=== PATIENT | female | born 2000 | race African-American/Black ===

== ENCOUNTER 2022-03-28 06:21 | Emergency (ER) | payer OTHER, SELFPAY ==
[2022-03-28] VITALS (8 sets, daily range): BP systolic 109–126; BP diastolic 71–82; PULSE 50–69; RESP 16–18; TEMP 36.5; O2SAT 98–100
--- NOTE | 2022-03-28 07:06 | PC.NURSE ---
Report given to IZABELA Puente
--- NOTE | 2022-03-28 07:20 | ED.GENADULT ---
HPI - General Adult General Chief complaint: Headache Stated complaint: Headache, spotting? Time Seen by Provider: 03/28/22 07:05 History of Present Illness HPI narrative: Pt is a 22 y/o AAF who p/w c/o CORTEZ and vaginal spotting. Began yesterday. Possible discharge. Last menses las week. Has reasonable concern for STI. No AP outside of cramps with spotting. No f/c/n/v/cp/soa. No change in vision. No h/o migraine. CORTEZ throbbing and posterior. Related Data Home Medications Medication Instructions Recorded Confirmed aspirin 81 mg tablet,delayed 81 mg PO DAILY 05/24/20 05/24/20 release (Deanne Low Dose Aspirin) folic acid 1 mg tablet 2 mg PO DAILY 05/24/20 05/24/20 prenat.vits,parviz,dzk-josa-euiky 1 tablet PO DAILY 05/24/20 05/24/20 progesterone micronized 200 mg 200 mg PO BID 05/24/20 05/24/20 capsule Allergies Allergy/AdvReac Type Severity Reaction Status Date / Time No Known Allergies Allergy Verified 03/28/22 06:30 Review of Systems Review of Systems: All systems reviewed & are unremarkable except as noted in HPI and below Constitutional: Constitutional: Denies chills, Denies fatigue and Denies fever(s) Eyes: Eyes: Denies change in vision Gastrointestinal: Gastrointestinal: Denies abdominal pain, Denies nausea and Denies vomiting Genitourinary: Genitourinary: Reports abnormal vaginal bleeding, Denies nocturia, Denies dysuria and Reports vaginal discharge PMFSH Past Medical History Medical History (Updated 03/28/22 @ 09:15 by Antonio Posadas MD) Healthy female adult Surgical History Surgical History (Updated 03/28/22 @ 07:22 by Antonio Posadas MD) No pertinent past surgical history Family History Family History (Updated 05/24/20 @ 13:36 by Trey Mckeon RN) Father Type 2 diabetes mellitus Grandparent Type 2 diabetes mellitus Social History Social History Substance use: never Spiritual care concerns: No Exam Narrative: GENERAL: Well-appearing, well-nourished, and in no acute distress. HEAD: Normocephalic, atraumatic. EYES: PERRL and EOMI. CHEST: Clear to auscultation. No respiratory distress. HEART: Regular rate and rhythm. Normal peripheral pulses. ABDOMEN: Soft, nontender, nondistended. : Normal cervix, no bleeding, mild to moderate amount of yellow discharge. Not malodorous. Normal external genitalia. EXTREMITIES: Normal range of motion. No edema. NEURO: Alert and oriented x3. PSYCH: Normal mood and affect. Course Course Emergency Course: Discharge home. We will treat for possible STI after discussion with patient. Vital Signs Vital signs: Vital Signs Temperature 97.7 F 03/28/22 06:30 Pulse Rate 65 03/28/22 06:30 Respiratory Rate 16 03/28/22 06:30 Blood Pressure 109/81 03/28/22 06:30 Pulse Oximetry 100 03/28/22 06:30 Oxygen Delivery Room Air 03/28/22 06:30 Temperature 97.7 F 03/28/22 06:30 Pulse Rate 54 L 03/28/22 08:56 Respiratory Rate 18 03/28/22 08:56 Blood Pressure 113/82 03/28/22 08:56 Pulse Oximetry 98 03/28/22 08:56 Oxygen Delivery Room Air 03/28/22 06:30 Medical Decision Making Vital Signs Vital Signs: Vital Signs Temperature 97.7 F 03/28/22 06:30 Pulse Rate 65 03/28/22 06:30 Respiratory Rate 16 03/28/22 06:30 Blood Pressure 109/81 03/28/22 06:30 Pulse Oximetry 100 03/28/22 06:30 Oxygen Delivery Room Air 03/28/22 06:30 Temperature 97.7 F 03/28/22 06:30 Pulse Rate 54 L 03/28/22 08:56 Respiratory Rate 18 03/28/22 08:56 Blood Pressure 113/82 03/28/22 08:56 Pulse Oximetry 98 03/28/22 08:56 Oxygen Delivery Room Air 03/28/22 06:30 Lab Data Labs: Lab Results 03/28/22 03/28/22 03/28/22 Range/Units 07:21 07:58 07:58 Urine Color Yellow (Yellow) Urine Appearance Clear (Clear) Urine pH 6.5 (5.0-9.0) Ur Specific [place] >= 1.030 (1.001-1.035) Urine Protein Negative (Negative) mg/dL Urine Glucose (UA) Negative
[2022-03-28] MEDS: KETOROLAC 30 MG/ML VIAL (*BKC) IV PUSH (07:23)
[2022-03-28 07:28] LABS: Appearance Urine Clear (Clear); Bilirubin Urine Negative (Negative); Blood Urine 2+ (Negative); Color Urine Yellow (Yellow); Glucose Urine UA Negative (Negative); Ketones Urine Negative (Negative); Leukocyte Esterase Ur Trace LEU/UL (Negative); Nitrate Urine Negative (Negative); Protein Urine Negative (Negative); Specific Grav Ur >= 1.030 (1.001-1.035); pH Urine 6.5 (5.0-9.0)
[2022-03-28 07:31] LABS: Mucus Urine Few /lpf; Squamous Epithelial Cell Urine Many /hpf (Few)
[2022-03-28 07:32] LABS: Add Urine Microscopic? YES
--- NOTE | 2022-03-28 08:48 | PC.NURSE ---
Lidocaine used for Rocephin reconstitution.
[2022-03-28] MEDS: cefTRIAXone 1 GM VIAL 0.5 GM IM (08:50)
== END 2022-03-28 09:33 | disposition home or self-care (01) ==
PROVIDERS: Emergency Provider Emergency Medicine
DX: R51.9 Headache, unspecified (principal); N93.9 Abnormal uterine and vaginal bleeding, unspecified
CPT/HCPCS: 81001; 81025; 87070; 87077; 87086; 87088; 87491; 87591; 87808; 96372; 96374; 99284; J0696; J1885

== ENCOUNTER 2022-05-28 22:54 | Emergency (ER) | payer OTHER, SELFPAY ==
[2022-05-28 22:56] VITALS: BP 98/70; PULSE 100; RESP 20; TEMP 36.8; O2SAT 100
[2022-05-28 23:24] LABS: Basophils Percent Auto 0.2 % (0.2-1.2); Hematocrit 32.7 % (37.0-47.0); Hemoglobin 9.6 g/dL (12.0-15.0); Immature Granulocyte Absolute 0.01 K/mm3 (0.00-0.031); Immature Granulocyte Percent A 0.2 % (0-0.5); Immature Platelet Fraction Pct 5.6 % (0.9-11.2); Lymphocytes Absolute Auto 0.88 K/mm3 (0.9-3.2); Mean Corpuscular HGB Conc 29.4 g/dl (32-36); Mean Corpuscular Volume 71.4 fl (80-100); Mean Platelet Volume 10.3 fl (7.4-10.4); Monocytes Absolute Auto 0.5 K/mm3 (0.1-0.6); Monocytes Percent Auto 10.7 % (2.6-8.5); Neutrophils Percent Auto 68.9 % (45.5-73.1); Platelet Count Result 206 k/mm3 (150-375); Red Blood Count 4.58 M/mm3 (4.2-5.4); Red Cell Distribution Width 17.7 % (11.5-14.5); White Blood Count 4.4 K/mm3 (4.5-10.0)
[2022-05-28 23:32] LABS: Alanine Aminotransferase 16 U/L (6-35); Albumin Level 4.8 g/dL (3.5-5.1); Alkaline Phosphatase 76 U/L (38-126); Anion Gap 14 mmol/L (8-16); Aspartate Amino Transferase 19 U/L (14-36); Bilirubin,Total 0.7 mg/dL (0.2-1.3); Blood Urea Nitrogen 9 mg/dL (7-17); Calcium 8.6 mg/dL (8.4-10.2); Carbon Dioxide 22 mmol/L (22-30); Chloride 100 mmol/L (98-107); Estimated CRCL calculation 100 ml/min; Estimated Glomerular Filt Rate > 60; Glucose 106 mg/dL (65-110); Lipase 69 U/L (23-300); Potassium 3.5 mmol/L (3.4-5.0); Sodium 136 mmol/L (137-145)
--- NOTE | 2022-05-28 23:58 | PC.NURSE ---
pt attempting to provide urine sample at this time
[2022-05-28 23:59] VITALS: BP 116/67; PULSE 93; RESP 18; O2SAT 100
[2022-05-29 00:05] VITALS: BP 110/71; BP 116/67; PULSE 113; PULSE 97
[2022-05-29 00:11] LABS: Appearance Urine Clear (Clear); Bilirubin Urine 1+ (Negative); Blood Urine Trace-lysed (Negative); Color Urine Yellow (Yellow); Glucose Urine UA Negative (Negative); Ketones Urine Trace mg/dL (Negative); Leukocyte Esterase Ur Trace LEU/UL (Negative); Nitrate Urine Negative (Negative); Protein Urine Negative (Negative)
[2022-05-29 00:15] LABS: Hypochromasia 2+ (NORMAL); Microcytosis 1+ (NORMAL); Platelet Estimate Adequate (Adequate)
[2022-05-29 00:17] LABS: Bacteria Urine Trace /hpf; Mucus Urine Moderate /lpf; Squamous Epithelial Cell Urine Moderate /hpf (Few)
[2022-05-29 00:32] LABS: Add Urine Microscopic? YES
[2022-05-29] MEDS: ONDANSETRON INJ 4 MG/2 ML VIAL IV PUSH ×2 (00:55→01:59)
[2022-05-29] MEDS: SODIUM CHLORIDE 0.9% IV 1,000 ML 999 ML IV CONT ×2 (00:56→01:59)
[2022-05-29 01:21] LABS: Influenza A QL RT-PCR Positive (Negative); Influenza B QL RT-PCR Negative (Negative); SARS-CoV-2 RNA PCR Negative
[2022-05-29 02:02] VITALS: BP 107/72; PULSE 90; RESP 18; O2SAT 100
--- NOTE | 2022-05-29 02:11 | ED.GENADULT ---
HPI - General Adult General Chief complaint: Nausea/Vomiting/Diarrhea Stated complaint: NAUSEA, DIZZY Time Seen by Provider: 05/29/22 00:20 History of Present Illness HPI narrative: Patient a 22-year-old female presents emerged from with chief complaint of nausea and vomiting. Patient reports that she started having symptoms approximately 3 days ago has been having body aches and is generalized malaise. Patient reports symptoms or not improved by anything reports they are worsened by p.o. intake. Related Data Home Medications Medication Instructions Recorded Confirmed aspirin 81 mg tablet,delayed 81 mg PO DAILY 05/24/20 05/24/20 release (Deanne Low Dose Aspirin) folic acid 1 mg tablet 2 mg PO DAILY 05/24/20 05/24/20 prenat.vits,parviz,bjn-mubt-mgvnr 1 tablet PO DAILY 05/24/20 05/24/20 progesterone micronized 200 mg 200 mg PO BID 05/24/20 05/24/20 capsule Allergies Allergy/AdvReac Type Severity Reaction Status Date / Time No Known Allergies Allergy Verified 05/28/22 23:01 Review of Systems Review of Systems: A 10 system review of systems was completed on the patient and is negative except for what is stated in the HPI. Nursing and ancillary documentation was reviewed. PMFSH Past Medical History Medical History Healthy female adult Surgical History Surgical History No pertinent past surgical history Family History Family History Father Type 2 diabetes mellitus Grandparent Type 2 diabetes mellitus Social History Social History Substance use: never Spiritual care concerns: No Exam Narrative: GENERAL: Well-appearing, well-nourished, and in no acute distress. HEAD: Normocephalic, atraumatic. EYES: PERRLA and EOMI. ENT: Nares clear, no rhinorrhea or epistaxis. Mucous membranes moist. NECK: Supple. CHEST: Clear to auscultation. No respiratory distress. HEART: Regular rate and rhythm. No murmur heard. Normal peripheral pulses. ABDOMEN: Soft, nontender, nondistended, normal active bowel sounds. EXTREMITIES: Normal range of motion. No edema. SKIN: Warm, dry, no rash. NEURO: No focal deficits. Alert and oriented x3. PSYCH: Normal mood and affect. Course Course Emergency Course: Patient is influenza A positive After receiving IV fluids and antiemetic she is feeling much better at this time Vital Signs Vital signs: Vital Signs Temperature 36.8 C 05/28/22 22:56 Pulse Rate 100 05/28/22 22:56 Respiratory Rate 20 05/28/22 22:56 Blood Pressure 98/70 L 05/28/22 22:56 Pulse Oximetry 100 05/28/22 22:56 Oxygen Delivery Room Air 05/28/22 22:56 Temperature 36.8 C 05/28/22 22:56 Pulse Rate 90 05/29/22 02:02 Respiratory Rate 18 05/29/22 02:02 Blood Pressure 107/72 05/29/22 02:02 Pulse Oximetry 100 05/29/22 02:02 Oxygen Delivery Room Air 05/28/22 22:56 Medical Decision Making Vital Signs Vital Signs: Vital Signs Temperature 36.8 C 05/28/22 22:56 Pulse Rate 100 05/28/22 22:56 Respiratory Rate 20 05/28/22 22:56 Blood Pressure 98/70 L 05/28/22 22:56 Pulse Oximetry 100 05/28/22 22:56 Oxygen Delivery Room Air 05/28/22 22:56 Temperature 36.8 C 05/28/22 22:56 Pulse Rate 90 05/29/22 02:02 Respiratory Rate 18 05/29/22 02:02 Blood Pressure 107/72 05/29/22 02:02 Pulse Oximetry 100 05/29/22 02:02 Oxygen Delivery Room Air 05/28/22 22:56 Lab Data Result diagrams: 05/28/22 23:11 05/28/22 23:11 Labs: Lab Results 05/28/22 05/28/22 05/29/22 Range/Units 23:11 23:11 00:01 WBC 4.4 L (4.5-10.0) K/mm3 RBC 4.58 (4.2-5.4) M/mm3 Hgb 9.6 L (12.0-15.0) g/dL Hct 32.7 L (37.0-47.0) % MCV 71.4 L (80-100) fl MCH 21.0 L
[2022-05-29 03:51] VITALS: BP 115/78; PULSE 88; RESP 18; O2SAT 99
== END 2022-05-29 03:49 | disposition home or self-care (01) ==
PROVIDERS: Emergency Provider Emergency Medicine
DX: J10.1 Influenza due to other identified influenza virus with other respiratory manifestations (principal); R11.2 Nausea with vomiting, unspecified; Z79.82 Long term (current) use of aspirin; Z20.822 Contact with and (suspected) exposure to COVID-19
CPT/HCPCS: 36415; 80053; 81001; 81025; 83690; 85025; 85055; 87502; 96361; 96374; 96376; 99284; J2405; J7030; U0003; U0005

== ENCOUNTER 2022-09-28 23:55 | Emergency (ER) | payer OTHER, SELFPAY ==
[2022-09-29 00:02] VITALS: BP 113/65; PULSE 89; RESP 15; TEMP 36.4; O2SAT 100
--- NOTE | 2022-09-29 03:00 | ED.GENADULT ---
HPI - General Adult General Chief complaint: Unspecified Stated complaint: vaginal Time Seen by Provider: 09/29/22 02:49 Source: patient and RN notes reviewed Mode of arrival: ambulatory Limitations: no limitations History of Present Illness HPI narrative: This is a 22 year old female who presents for evaluation of possible vaginal foreign body. Patient states she placed a tampon vaginally last night and she does not remember taking it out. She is having vaginal bleeding. She reports she felt something hard inside her vaginal. She denies abdominal pain, nausea, vomiting or malodorous vaginal discharge. Related Data Home Medications Medication Instructions Recorded Confirmed aspirin 81 mg tablet,delayed 81 mg PO DAILY 05/24/20 05/24/20 release (Deanne Low Dose Aspirin) folic acid 1 mg tablet 2 mg PO DAILY 05/24/20 05/24/20 prenat.vits,parviz,kku-xqja-lovbq 1 tablet PO DAILY 05/24/20 05/24/20 progesterone micronized 200 mg 200 mg PO BID 05/24/20 05/24/20 capsule Allergies Allergy/AdvReac Type Severity Reaction Status Date / Time No Known Allergies Allergy Verified 05/28/22 23:01 Review of Systems Constitutional: Constitutional: Denies weakness Cardiovascular: Cardiovascular: Denies syncope, Denies rapid heart rate, Denies irregular heart rhythm, Denies leg edema and Denies dyspnea Respiratory: Respiratory: Denies chest congestion, Denies hemoptysis, Denies excessive phlegm production and Denies dyspnea Gastrointestinal: Gastrointestinal: Denies abdominal pain, Denies hematochezia, Denies diarrhea and Denies vomiting Genitourinary: Genitourinary: Denies hematuria and Denies dysuria Musculoskeletal: Musculoskeletal: Denies joint swelling, Denies loss of height and Denies muscle weakness Neurologic: Denies syncope, Denies focal weakness and Denies weakness PMFSH Past Medical History Medical History Healthy female adult Surgical History Surgical History No pertinent past surgical history Family History Family History Father Type 2 diabetes mellitus Grandparent Type 2 diabetes mellitus Social History Social History Substance use: never Spiritual care concerns: No Exam Narrative: GENERAL: Well-appearing, well-nourished, and in no acute distress. HEAD: Normocephalic, atraumatic. EYES: EOMI NECK: Supple. CHEST: Clear to auscultation. No respiratory distress. HEART: Regular rate and rhythm. No murmur heard. Normal peripheral pulses. ABDOMEN: Soft, nontender, nondistended, normal active bowel sounds. EXTREMITIES: Normal range of motion. No edema. SKIN: Warm, dry, no rash. NEURO: No focal deficits. Alert and oriented x3. PSYCH: Normal mood and affect. : Speculum Exam - Vagina: vaginal bleeding (mild bleeding) and other (visual entire vault, no foreign body found) Speculum Exam - Cervix: normal appearance of the cervix, normal palpation and Cervical os closed Course Reevaluation(s) Date: 09/29/22 Time: 03:04 Vital Signs Vital signs: Vital Signs Temperature 97.5 F L 09/29/22 00:02 Pulse Rate 89 09/29/22 00:02 Respiratory Rate 15 09/29/22 00:02 Blood Pressure 113/65 09/29/22 00:02 Pulse Oximetry 100 09/29/22 00:02 Oxygen Delivery Room Air 09/29/22 00:02 Temperature 97.5 F L 09/29/22 00:02 Pulse Rate 89 09/29/22 00:02 Respiratory Rate 15 09/29/22 00:02 Blood Pressure 113/65 09/29/22 00:02 Pulse Oximetry 100 09/29/22 00:02 Oxygen Delivery Room Air 09/29/22 00:02 Medical Decision Making Vital Signs Vital Signs: Vital Signs Temperature 97.5 F L 09/29/22 00:02 Pulse Rate 89 09/29/22 00:02 Respiratory Rate 15 09/29/22 00:02 Blood Pressure 113/65 09/29/22 00:02 Pulse Oximetry 100
== END 2022-09-29 03:30 | disposition home or self-care (01) ==
PROVIDERS: Emergency Provider General Practice; PCP Family Medicine
DX: Z03.823 Encounter for observation for suspected inserted (injected) foreign body ruled out (principal)
CPT/HCPCS: 99281

== ENCOUNTER 2023-02-18 18:36 | Emergency (ER) | payer OTHER, SELFPAY ==
--- NOTE | ~2023-02-18 | XR_ITS ---
EXAM: XR foot RT 2V DATE: 02/18/2023 19:33 HISTORY: pain TO LATERAL FOOT X 3 DAYS . COMPARISON: None available. FINDINGS: Normal mineralization. No fracture or dislocation. No lytic or blastic lesion. Joint space s are maintained. No erosion or periosteal change. Soft tissues within normal limits. IMPRESSION: No acute osseous finding in the right foot. Reviewed, dictated and finalized at location K.
[2023-02-18 18:39] VITALS: BP 117/74; PULSE 81; RESP 16; TEMP 36.7; O2SAT 100
--- NOTE | 2023-02-18 19:17 | ED.LOWEXIN ---
HPI - Extremity Injury (Lower) General Chief Complaint: Extremity Injury, Lower Stated Complaint: Right ankle pain Time Seen by Provider: 02/18/23 18:41 History of Present Illness HPI Narrative: 23-year-old female reports for evaluation for right foot pain x2 days. Patient's states her right foot hurts on the lateral aspect and plantar aspect of her foot. She denies any known injury but does recall sitting on her foot the other day. 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 She reports pain is worse when ambulating and applying pressure to her foot. She denies lower extremity edema, ankle pain, calf pain or knee pain, fever. Related Data Home Medications Medication Instructions Recorded Confirmed aspirin 81 mg tablet,delayed 81 mg PO DAILY 05/24/20 05/24/20 release (Deanne Low Dose Aspirin) folic acid 1 mg tablet 2 mg PO DAILY 05/24/20 05/24/20 prenat.vits,parviz,rvz-izvu-rsvgt 1 tablet PO DAILY 05/24/20 05/24/20 progesterone micronized 200 mg 200 mg PO BID 05/24/20 05/24/20 capsule Allergies Allergy/AdvReac Type Severity Reaction Status Date / Time No Known Allergies Allergy Verified 02/18/23 19:27 Review of Systems Review of Systems: CONSTITUTIONAL: Denies fever, chills EYES: Denies visual changes, redness, or discharge. ENT: Denies rhinorrhea, congestion, sore throat, or otalgia. CARDIOVASCULAR: Denies chest pain, palpitations, or edema. RESPIRATORY: Denies cough or dyspnea. GASTROINTESTINAL: Denies abdominal pain, nausea, vomiting, or diarrhea. GENITOURINARY: Denies dysuria or hematuria. SKIN: Denies rash or itching. MUSCULOSKELETAL: See HPI NEUROLOGIC: Denies headache, numbness, dizziness, or weakness. PSYCHIATRIC: Denies anxiety or depression. [facility] Past Medical History Medical History Healthy female adult Surgical History Surgical History No pertinent past surgical history Family History Family History Father Type 2 diabetes mellitus Grandparent Type 2 diabetes mellitus Social History Social History Substance use: never Spiritual care concerns: No Exam Narrative: GENERAL: Well-appearing, in no acute distress. HEAD: Normocephalic NECK: Supple. CHEST: No respiratory distress. Clear to auscultation, no adventitious breath sounds. HEART: Regular rate and rhythm. No murmur heard. Normal peripheral pulses. EXTREMITIES: RLE: Tenderness over the base of the fifth metatarsal and along the plantar fascia. No edema, crepitus or deformity. No tenderness to ankle, tib-fib or knee. Negative high squeeze. Full range of motion of ankle and toes. Sensation intact throughout. Cap refill less than 2. Radial pulse 2+. SKIN: Warm, dry, no rash. NEURO: No focal deficits. Alert and oriented x3. PSYCH: Normal mood and affect. Course Vital Signs Vital signs: Vital Signs Temperature 98.0 F 02/18/23 18:39 Pulse Rate 81 02/18/23 18:39 Respiratory Rate 16 02/18/23 18:39 Blood Pressure 117/74 02/18/23 18:39 Pulse Oximetry 100 02/18/23 18:39 Oxygen Delivery Room Air 02/18/23 18:39 Temperature 98.0 F 02/18/23 18:39 Pulse Rate 81 02/18/23 18:39 Respiratory Rate 16 02/18/23 18:39 Blood Pressure 117/74 02/18/23 18:39 Pulse Oximetry 100 02/18/23 18:39 Oxygen Delivery Room Air 02/18/23 18:39 MDM - Extremity Injury (Lower) MDM Narrative Medical decision making narrative: 23-year-old female reports for evaluation for right foot pain x2 days. Vital stable. Exam and history consistent with plantar fasciitis. X-rays obtained showed no acute osseous abnormality. She is neurovascularly intact. Imaging discussed with the patient. Encouraged supportive shoes, calf Stretching, RICE, and PCP fo
[2023-02-18] MEDS: IBUPROFEN 600 MG TABLET PO (19:27)
== END 2023-02-18 20:21 | disposition home or self-care (01) ==
PROVIDERS: Emergency Provider Physician Assistant
DX: M72.2 Plantar fascial fibromatosis (principal); Z79.82 Long term (current) use of aspirin
CPT/HCPCS: 73620; 99283; A9270

== ENCOUNTER 2023-02-21 18:41 | Emergency (ER) | payer OTHER, SELFPAY ==
[2023-02-21 19:05] VITALS: BP 104/64; PULSE 88; RESP 18; TEMP 36.5; O2SAT 100
--- NOTE | 2023-02-21 20:33 | ED.LOWEXIN ---
HPI - Extremity Injury (Lower) General Chief Complaint: Extremity Injury, Lower Stated Complaint: R foot pain/ recheck Time Seen by Provider: 02/21/23 19:57 History of Present Illness HPI Narrative: This is a 23-year-old female, recently seen in this emergency department for right foot pain. Exam and imaging at the time was not concerning for fracture and the patient was thought to have plantar fasciitis. The patient states she continued to have pain, and yesterday went to [facility] where repeat x-ray was again not concerning for fracture. The patient states she worked today, noting pain and swelling with prolonged walking. Her pain was rated 6/10, described as dull and intermittently sharp. It is since improved with rest. She states overall she feels that is improving. Related Data Home Medications Medication Instructions Recorded Confirmed aspirin 81 mg tablet,delayed 81 mg PO DAILY 05/24/20 05/24/20 release (Deanne Low Dose Aspirin) folic acid 1 mg tablet 2 mg PO DAILY 05/24/20 05/24/20 prenat.vits,parviz,lbu-zjmi-fjeor 1 tablet PO DAILY 05/24/20 05/24/20 progesterone micronized 200 mg 200 mg PO BID 05/24/20 05/24/20 capsule Allergies Allergy/AdvReac Type Severity Reaction Status Date / Time No Known Allergies Allergy Verified 02/18/23 19:27 Review of Systems Review of Systems: CONSTITUTIONAL: Denies fever, chills, or sweats. CARDIOVASCULAR: Denies chest pain, palpitations, or edema. RESPIRATORY: Denies cough or dyspnea. GASTROINTESTINAL: Denies abdominal pain, nausea, vomiting, or diarrhea. GENITOURINARY: Denies dysuria or hematuria. SKIN: Denies rash or itching. MUSCULOSKELETAL: Right foot pain denies back pain, or myalgia. NEUROLOGIC: Denies headache, numbness, dizziness, or weakness. PSYCHIATRIC: Denies anxiety or depression. [facility] Past Medical History Medical History Healthy female adult Surgical History Surgical History No pertinent past surgical history Family History Family History Father Type 2 diabetes mellitus Grandparent Type 2 diabetes mellitus Social History Social History Substance use: never Spiritual care concerns: No Exam Narrative: GENERAL: Well-developed, well-nourished, and in no acute distress. HEAD: Normocephalic, atraumatic. EYES: PERRLA and EOMI. CHEST: Clear to auscultation. No respiratory distress. No wheezes rales or rhonchi HEART: Regular rate and rhythm. No murmur heard. Normal peripheral pulses. EXTREMITIES: Mild tenderness to palpation at the lateral aspect of the right foot over the proximal aspect of the fifth metatarsal. Normal range of motion. No edema. SKIN: Warm, dry, no rash. PSYCH: Normal mood and affect. Course Course Emergency Course: 20:35 - Exam is reassuring. She has had imaging twice without obvious fracture or dislocation. I advised the patient on pain management with RICE therapy and follow-up with a primary care doctor with possible repeat imaging in the future. Discussed return and emergency precautions including signs/symptoms of neurovascular compromise and septic arthritis. The patient voiced understanding and is comfortable with the plan. All questions answered to her satisfaction. Vital Signs Vital signs: Vital Signs Temperature 97.7 F 02/21/23 19:05 Pulse Rate 88 02/21/23 19:05 Respiratory Rate 18 02/21/23 19:05 Blood Pressure 104/64 02/21/23 19:05 Pulse Oximetry 100 02/21/23 19:05 Oxygen Delivery Room Air 02/21/23 19:05 Temperature 97.7 F 02/21/23 19:05 Pulse Rate 88 02/21/23 19:05 Respiratory Rate 18 02/21/23 19:05 Blood Pressure 104/64 02/21/23 19:05 Pulse Oximetry 100 02/21/23 19:05 Oxygen Delivery Room Air 02/21/23 19:05 MDM - Extremity I
== END 2023-02-21 20:46 | disposition home or self-care (01) ==
PROVIDERS: Emergency Provider Preventive Medicine Aerospace Medicine
DX: M79.671 Pain in right foot (principal); Z79.82 Long term (current) use of aspirin
CPT/HCPCS: 99282

== ENCOUNTER 2023-08-04 15:25 | Emergency (ER) | payer OTHER, SELFPAY ==
[2023-08-04 15:32] VITALS: BP 104/56; PULSE 102; RESP 14; TEMP 37.6; O2SAT 100
[2023-08-04 16:16] LABS: Strep Group A RT-PCR NOT DETECTED (Negative)
[2023-08-04 16:27] LABS: Influenza A QL RT-PCR Negative (Negative); Influenza B QL RT-PCR Positive (Negative); RSV RNA, RT-PCR Negative (Negative); SARS-CoV-2 RNA PCR Negative (Negative)
--- NOTE | 2023-08-04 16:41 | ED.GENADULT ---
HPI - General Adult General Chief complaint: Unspecified Stated complaint: NVD, headache, back pain Time Seen by Provider: 08/04/23 15:42 History of Present Illness HPI narrative: 23-year-old female presenting with URI symptoms. Patient states that for the last 3-4 days she has had diffuse body aches, headache, back pain, nausea. States she has had a lot of nasal congestion, intermittent cough. No chest pain or shortness of breath. No leg swelling. No fevers or chills. Related Data Home Medications Medication Instructions Recorded Confirmed aspirin 81 mg tablet,delayed 81 mg PO DAILY 05/24/20 05/24/20 release (Deanne Low Dose Aspirin) folic acid 1 mg tablet 2 mg PO DAILY 05/24/20 05/24/20 prenat.vits,parviz,xcz-kyyt-evvbn 1 tablet PO DAILY 05/24/20 05/24/20 progesterone micronized 200 mg 200 mg PO BID 05/24/20 05/24/20 capsule Allergies Allergy/AdvReac Type Severity Reaction Status Date / Time No Known Allergies Allergy Verified 08/04/23 15:34 Review of Systems Review of Systems: All systems reviewed & are unremarkable except as noted in HPI and below PMFSH Past Medical History Medical History Healthy female adult Surgical History Surgical History No pertinent past surgical history Family History Family History Father Type 2 diabetes mellitus Grandparent Type 2 diabetes mellitus Social History Social History Substance use: never Spiritual care concerns: No Exam Narrative: GENERAL: Nontoxic, uncomfortable appearing, pleasant and cooperative HEAD: Normocephalic, atraumatic. EYES: PERRLA and EOMI. ENT: + rhinorrhea Mucous membranes moist. NECK: Supple. No nuchal rigidity CHEST: Clear to auscultation. No respiratory distress. HEART: Regular rate and rhythm ABDOMEN: Soft, nontender, nondistended EXTREMITIES: Normal range of motion. SKIN: Warm, dry, no rash. NEURO: No focal deficits. Alert and oriented x3. PSYCH: Normal mood and affect. Course Vital Signs Vital signs: Vital Signs Temperature 99.7 F H 08/04/23 15:32 Pulse Rate 102 H 08/04/23 15:32 Respiratory Rate 14 08/04/23 15:32 Blood Pressure 104/56 L 08/04/23 15:32 Pulse Oximetry 100 08/04/23 15:32 Oxygen Delivery Room Air 08/04/23 15:32 Temperature 99.7 F H 08/04/23 15:32 Pulse Rate 102 H 08/04/23 15:32 Respiratory Rate 14 08/04/23 15:32 Blood Pressure 104/56 L 08/04/23 15:32 Pulse Oximetry 100 08/04/23 15:32 Oxygen Delivery Room Air 08/04/23 15:32 Medical Decision Making MDM Narrative Medical decision making narrative: 23-year-old female presenting with body aches, nausea, URI symptoms. Vitals are stable. Exam remarkable for the above. Patient is positive for influenza. Discussed appropriate supportive care with Tylenol, ibuprofen. Will send in for Zofran for her nausea. Advised adequate fluid intake and PCP follow-up. Appropriate return precautions given. Discharged in stable condition. Differential Diagnosis Differential Diagnosis: Flu, COVID, RSV, viral URI, strep Medical Records Medical records reviewed: Yes I reviewed the external patient's medical records. Vital Signs Vital Signs: Vital Signs Temperature 99.7 F H 08/04/23 15:32 Pulse Rate 102 H 08/04/23 15:32 Respiratory Rate 14 08/04/23 15:32 Blood Pressure 104/56 L 08/04/23 15:32 Pulse Oximetry 100 08/04/23 15:32 Oxygen Delivery Room Air 08/04/23 15:32 Temperature 99.7 F H 08/04/23 15:32 Pulse Rate 102 H 08/04/23 15:32 Respiratory Rate 14 08/04/23 15:32 Blood Pressure 104/56 L 08/04/23 15:32 Pulse Oximetry 100 08/04/23 15:32 Oxygen Delivery Room Air 08/04/23 15:32 Lab Data Lab results reviewed: Yes I reviewed the patient's lab
[2023-08-04] MEDS: IBUPROFEN 400 MG TABLET 800 MG PO (16:57)
[2023-08-04] MEDS: ONDANSETRON HCL ODT 4 MG TABLET PO (16:57)
== END 2023-08-04 17:07 | disposition home or self-care (01) ==
PROVIDERS: Emergency Provider Emergency Medicine
DX: J10.1 Influenza due to other identified influenza virus with other respiratory manifestations (principal); Z20.822 Contact with and (suspected) exposure to COVID-19; Z79.82 Long term (current) use of aspirin
CPT/HCPCS: 87637; 87651; 99283; A9270

== ENCOUNTER 2024-01-11 01:42 | Emergency (ER) | payer OTHER, SELFPAY ==
[2024-01-11 01:47] VITALS: BP 122/76; PULSE 86; RESP 14; TEMP 36.6; O2SAT 100
[2024-01-11 02:07] LABS: Appearance Urine Cloudy (Clear); Bacteria Urine 1+ /hpf; Bilirubin Urine Negative (Negative); Blood Urine 3+ (Negative); Color Urine Yellow (Yellow); Glucose Urine UA Negative (Negative); Ketones Urine Trace mg/dL (Negative); Leukocyte Esterase Ur 1+ LEU/UL (Negative); Nitrate Urine Negative (Negative); Non Pathogenic Casts 0-2; Protein Urine 1+ mg/dL (Negative); Squamous Epithelial Cell Urine Few /hpf (Few)
[2024-01-11 02:22] LABS: Add Urine Microscopic? YES
--- NOTE | 2024-01-11 02:22 | ED.FEMALEGU ---
HPI - Female Genitourinary General Chief complaint: Urogenital-Female Stated complaint: red discharge after peeing Time Seen by Provider: 01/11/24 01:47 History of Present Illness HPI Narrative: This is a 23-year-old female, with no significant past medical history, presents to the emergency department complaining abnormal vaginal discharge. The patient states he noticed this today primarily after urination. She denies associated dysuria, abdominal pain, fevers or chills. She states she has a new sexual partner, who has not had similar symptoms. She has no other complaints at this time. Related Data Home Medications Medication Instructions Recorded Confirmed aspirin 81 mg tablet,delayed 81 mg PO DAILY 05/24/20 05/24/20 release (Deanne Low Dose Aspirin) folic acid 1 mg tablet 2 mg PO DAILY 05/24/20 05/24/20 prenat.vits,parviz,nhu-plut-lqswx 1 tablet PO DAILY 05/24/20 05/24/20 progesterone micronized 200 mg 200 mg PO BID 05/24/20 05/24/20 capsule Allergies Allergy/AdvReac Type Severity Reaction Status Date / Time No Known Allergies Allergy Verified 01/11/24 01:51 Review of Systems Review of Systems: Last menstrual period 1 week ago All systems reviewed & are unremarkable except as noted in HPI and below PMFSH Past Medical History Medical History Healthy female adult Surgical History Surgical History No pertinent past surgical history Family History Family History Father Type 2 diabetes mellitus Grandparent Type 2 diabetes mellitus Social History Social History Substance use: never Spiritual care concerns: No Exam Narrative: GENERAL: Well-developed, well-nourished, and in no acute distress. HEAD: Normocephalic, atraumatic. EYES: PERRLA and EOMI. CHEST: Clear to auscultation. No respiratory distress. No wheezes rales or rhonchi HEART: Regular rate and rhythm. No murmur heard. Normal peripheral pulses. ABDOMEN: Soft, nontender, nondistended, normal active bowel sounds. (chaperoned by female RN Alexey): Normal external female genitalia. Speculum exam demonstrates purulent and slightly bloody fluid in the vaginal vault. No cervical motion tenderness or adnexal tenderness on bimanual exam. EXTREMITIES: Normal range of motion. No edema. SKIN: Warm, dry, no rash. NEURO: Alert and oriented x3. No focal deficit. Moving all 4 limbs spontaneously PSYCH: Normal mood and affect. Course Course Emergency Course: 04:39 - UA demonstrates leukocyte esterase, 11-20 white blood cells with 1+ bacteria. test negative. The patient tested negative for chlamydia and gonorrhea. I discussed the findings with the patient. I do not suspect need for antibiotics at this time. However will provide patient prescription antibiotics in the event that she develops symptoms consistent with a urinary tract infection. I discussed the findings and recommendations with the patient. Discussed return and emergency precautions including signs/symptoms of acute abdomen and intractable vomiting. The patient voiced understanding and agreement with the plan. All questions answered to her satisfaction. Vital Signs Vital signs: Vital Signs Temperature 97.8 F 01/11/24 01:47 Pulse Rate 86 01/11/24 01:47 Respiratory Rate 14 01/11/24 01:47 Blood Pressure 122/76 01/11/24 01:47 Pulse Oximetry 100 01/11/24 01:47 Oxygen Delivery Room Air 01/11/24 01:47 Temperature 97.8 F 01/11/24 01:47 Pulse Rate 86 01/11/24 01:47 Respiratory Rate 14 01/11/24 01:47 Blood Pressure 122/76 01/11/24 01:47 Pulse Oximetry 100 01/11/24 01:47 Oxygen Delivery Room Air 01/11/24 01:47 MDM - Female Genitourinary MDM Narrative Medical decision making narrative: Plan: Labs, pregnanc
[2024-01-11 03:51] VITALS: BP 119/72; PULSE 78; RESP 16; O2SAT 100
[2024-01-11 04:26] LABS: Chlamydia trachomatis NOT DETECTED (NOT DETECTE); Neisseria gonorrhoeae PCR NOT DETECTED (NOT DETECTE)
[2024-01-11 04:49] VITALS: BP 108/77; PULSE 68; RESP 18; O2SAT 100
== END 2024-01-11 04:51 | disposition home or self-care (01) ==
PROVIDERS: Emergency Provider Preventive Medicine Aerospace Medicine
DX: N89.8 Other specified noninflammatory disorders of vagina (principal)
CPT/HCPCS: 81001; 81025; 87086; 87491; 87591; 99284